=== PATIENT | female | born 1965 | race Caucasian/White ===

== ENCOUNTER 2021-09-11 18:06 | Emergency (ER) | payer OTHER ==
[~2021-09-11] VITALS: Ht 172.7 cm; Wt 111.1 kg
[2021-09-11 18:13] VITALS: BP 135/80
--- NOTE | 2021-09-11 18:39 | NUR ---
XRAY AT BEDSIDE
--- NOTE | 2021-09-11 18:48 | NUR ---
56YR OLD FEMALE BIB FAMILY C/O LEFT ANKLE INJURY/PAIN. FALL IN BATHROOM TODAY AROUND 1400. L ANKLE SWOLLEN PAIN LEVEL 10/01. GOOD CAP REFILL AND ROM. PT IN BED WITH SIDE RAILS UP X2 PERSIAN SPEAKING ONLY. UNKNOWN DM
[2021-09-11] MEDS ORDERED: HYDROcodone/APAP 5/325 MG 1 TAB TAB PO ONE (18:55)
--- NOTE | 2021-09-11 19:45 | NUR ---
PATIENT SITTING IN BED. STATED SHE IS NOT IN ANY PAIN OR DISCOMFORT AT THIS TIME.
[2021-09-11 19:50] VITALS: BP 128/78
--- NOTE | 2021-09-11 19:50 | NUR ---
Patient discharged with v/s stable. Written and verbal after care instructions given and explained. Patient verbalized understanding. Wheel Chair Assisted with steady gait. All questions addressed prior to discharge. Advised to follow up with PMD.
== END 2021-09-11 19:50 | disposition home or self-care (01) ==
LOC: MED 18:06
DX: S93.402A Sprain of unspecified ligament of left ankle, initial encounter (principal); E07.9 Disorder of thyroid, unspecified; W19.XXXA Unspecified fall, initial encounter; Y93.89 Activity, other specified; Y92.89 Other specified places as the place of occurrence of the external cause; Y99.8 Other external cause status
CPT/HCPCS: 73610; 73630; 99284

== ENCOUNTER 2021-11-06 17:43 | Emergency (ER) | payer OTHER ==
[~2021-11-06] VITALS: Ht 172.7 cm; Wt 114.0 kg
[2021-11-06 17:46] VITALS: BP 141/68
--- NOTE | 2021-11-06 17:54 | NUR ---
BIB SELF C/O RIGHT KNEE PAIN S/P FALL X 6 DAYS. PMH: DM
--- NOTE | 2021-11-06 18:00 | NUR ---
Patient being evaluated by MELLISSA WYMAN at bedside.
[2021-11-06] MEDS ORDERED: NAPR-54 PO (18:39)
--- NOTE | 2021-11-06 18:49 | NUR ---
SHILO WRAP X 1 TO R KNEE + CMS
[2021-11-06 19:02] VITALS: BP 141/68
== END 2021-11-06 19:01 | disposition home or self-care (01) ==
LOC: MED 17:43
DX: S80.01XA Contusion of right knee, initial encounter (principal); E11.9 Type 2 diabetes mellitus without complications; Z79.899 Other long term (current) drug therapy; Z79.4 Long term (current) use of insulin; W18.30XA Fall on same level, unspecified, initial encounter; Y93.89 Activity, other specified; Y92.89 Other specified places as the place of occurrence of the external cause; Y99.8 Other external cause status
CPT/HCPCS: 73562; 99283

== ENCOUNTER 2021-11-11 08:30 | Emergency (ER) | payer OTHER ==
[~2021-11-11] VITALS: Ht 177.8 cm; Wt 113.9 kg
[~2021-11-11 08:30] MED LIST: NAPR-54 PO
--- NOTE | 2021-11-11 12:22 | NUR ---
PT AMB TO ER BED 3
[2021-11-11] MEDS: NACL 0.9% 1,000 ML IV SCH (12:45)
[2021-11-11] MEDS: KETOROLAC 15 MG/ML VIAL IVP ONE (12:48)
[2021-11-11] MEDS: DIPHENOXYLATE /ATROPINE 2.5 MG TAB PO ONE (12:49)
[2021-11-11 13:15] LABS: BASOPHILS % (AUTO) 0.5 % (0.0-2.0); EOSINOPHILS # (AUTO) 0.2 K/uL (0-0.4); EOSINOPHILS % (AUTO) 2.2 % (0.0-4.0); HEMATOCRIT 43.5 % (36-48); HEMOGLOBIN 14.4 g/dL (12.0-16.0); LYMPHOCYTES # (AUTO) 2.3 K/uL (2.5-16.5); MEAN CORPUSCULAR HEMOGLOBIN 30 pg (27-31); MEAN CORPUSCULAR HGB CONC 33 g/dL (33-37); MEAN CORPUSCULAR VOLUME 89.2 fL (80-94); MONOCYTES # (AUTO) 0.5 K/uL (0.8-1.0); NEUTROPHILS # (AUTO) 4.8 K/uL (1.8-7.7); NEUTROPHILS % (AUTO) 61.3 % (42.2-75.2); PLATELET COUNT (AUTO) 165 K/uL (140-450); RED BLOOD CELL COUNT(AUTO) 4.87 MIL/uL (4.20-5.40); RED CELL DISTRIBUTION WIDTH 14.2 % (11.6-13.7); WHITE BLOOD COUNT (AUTO) 7.8 K/uL (4.8-10.8)
[2021-11-11 13:20] LABS: ALBUMIN 3.5 g/dL (3.4-5.0); ANION GAP 13.1 (8-16); CARBON DIOXIDE 28.7 mmol/L (21-32); CREATININE 0.7 mg/dL (0.6-1.3); POTASSIUM 3.8 mmol/L (3.5-5.1); TOTAL BILIRUBIN 0.4 mg/dL (0.0-1.0)
[2021-11-11] MEDS ORDERED: SULF-58 PO (13:56)
[2021-11-11] MEDS ORDERED: ATRO1TAB PO (13:56)
[2021-11-11 14:09] LABS: APPEARANCE,URINE SL CLOUDY (CLEAR); BILIRUBIN,URINE NEGATIVE (NEGATIVE); BLOOD, URINE TRACE-L (NEGATIVE); COLOR,URINE YELLOW (YELLOW); LEUKOCYTE ESTERASE ,URINE NEGATIVE (NEGATIVE); NITRITE, URINE POSITIVE (NEGATIVE); PH,URINE 5.5 (5.0-9.0); UGLUCOSE NEGATIVE (NEGATIVE)
[2021-11-11 14:14] VITALS: BP 146/82
== END 2021-11-11 14:08 | disposition home or self-care (01) ==
LOC: MED 09:30
DX: N39.0 Urinary tract infection, site not specified (principal); R19.7 Diarrhea, unspecified; M54.50 Low back pain, unspecified; E11.9 Type 2 diabetes mellitus without complications; F17.210 Nicotine dependence, cigarettes, uncomplicated; Z90.49 Acquired absence of other specified parts of digestive tract; Z79.899 Other long term (current) drug therapy
CPT/HCPCS: 36415; 80053; 81003; 81025; 83690; 85025; 96361; 96374; 99283; J1885; J7030

== ENCOUNTER 2021-12-15 14:06 | Emergency (ER) | payer OTHER ==
[~2021-12-15] VITALS: Ht 172.7 cm; Wt 111.6 kg
[~2021-12-15 14:06] MED LIST changes: +ATRO1TAB PO; +SULF-58 PO
[2021-12-15 14:42] VITALS: BP 155/82
[2021-12-15] MEDS ORDERED: NACL 0.9% 1,000 ML IV SCH (14:55)
[2021-12-15 15:15] LABS: BASOPHILS # (AUTO) 0.1 K/uL (0.00-0.22); BASOPHILS % (AUTO) 0.9 % (0.0-2.0); EOSINOPHILS # (AUTO) 0.1 K/uL (0-0.4); EOSINOPHILS % (AUTO) 2.1 % (0.0-4.0); HEMATOCRIT 40.4 % (36-48); HEMOGLOBIN 13.9 g/dL (12.0-16.0); LYMPHOCYTES # (AUTO) 2.7 K/uL (2.5-16.5); LYMPHOCYTES % (AUTO) 38.4 % (20.5-51.1); MEAN CORPUSCULAR HEMOGLOBIN 30 pg (27-31); MEAN CORPUSCULAR HGB CONC 34 g/dL (33-37); MEAN CORPUSCULAR VOLUME 87.5 fL (80-94); MONOCYTES # (AUTO) 0.4 K/uL (0.8-1.0); MONOCYTES % (AUTO) 5.8 % (1.7-9.3); NEUTROPHILS # (AUTO) 3.7 K/uL (1.8-7.7); NEUTROPHILS % (AUTO) 52.8 % (42.2-75.2); PLATELET COUNT (AUTO) 151 K/uL (140-450); RED BLOOD CELL COUNT(AUTO) 4.62 MIL/uL (4.20-5.40); RED CELL DISTRIBUTION WIDTH 13.8 % (11.6-13.7)
[2021-12-15] MEDS ORDERED: MORPHINE SULFATE 4 MG/ML SYR IVP ONE (15:20)
[2021-12-15] MEDS ORDERED: ONDANSETRON 4 MG/2 ML VIAL IVP ONE (15:20)
[2021-12-15] MEDS ORDERED: KETOROLAC 15 MG/ML VIAL IVP ONE (15:20)
--- NOTE | 2021-12-15 15:30 | NUR ---
RECEIVED PATIENT FROM TRIAGE, PATIENT ALERT ADN ORIENTED X 4, NO S/S OF ACUTE DISTRESS. HX OF DM AND HTN. PATIENT REPORTS NAUSEA AND DIARRHEA, WITH 2 EPISODES OF DIARRHEA TODAY. PATIENT'S LUNG SOUNDS CLEAR BILATERALLY. ABLE TO AMBULATE WITH NO ASSISTANCE. WILL CONTINUE TO MONITOR
[2021-12-15 15:36] LABS: ALBUMIN 3.2 g/dL (3.4-5.0); CARBON DIOXIDE 26.9 mmol/L (21-32); CREATININE 0.9 mg/dL (0.6-1.3); POTASSIUM 3.9 mmol/L (3.5-5.1); TOTAL BILIRUBIN 0.3 mg/dL (0.0-1.0)
[2021-12-15 16:06] LABS: BILIRUBIN,URINE NEGATIVE (NEGATIVE); BLOOD, URINE 3+ (NEGATIVE); LEUKOCYTE ESTERASE ,URINE NEGATIVE (NEGATIVE); NITRITE, URINE NEGATIVE (NEGATIVE); PH,URINE 5.5 (5.0-9.0); UGLUCOSE NEGATIVE (NEGATIVE)
[2021-12-15 16:15] LABS: APPEARANCE,URINE CLEAR (CLEAR); COLOR,URINE STRAW (YELLOW)
[2021-12-15] MEDS ORDERED: ONDANSETRON 4 MG/2 ML VIAL ONE (16:24)
[2021-12-15] MEDS ORDERED: KETOROLAC 15 MG/ML VIAL ONE (16:25)
[2021-12-15] MEDS ORDERED: MORPHINE SULFATE 4 MG/ML SYR ONE (16:25)
[2021-12-15 16:29] LABS: RBC,URINE 20-50 /HPF (0-5); WBC,URINE 0-5 /HPF (0-5)
[2021-12-15 18:00] VITALS: BP 115/82
[2021-12-15] MEDS ORDERED: CEPH-588 PO (18:25)
[2021-12-15] MEDS ORDERED: ONDA-188 SL (18:25)
[2021-12-15] MEDS ORDERED: ACETAMINOPHEN 325 MG TAB PO ONE (19:15)
--- NOTE | 2021-12-15 19:20 | NUR ---
FIRST CONTACT WITH PT FOR DC ONLY. PT A&OX4, RR EVEN AND UNLABORED. NO S/S OF DISTRESS NOTED.
--- NOTE | 2021-12-15 19:20 | NUR ---
Patient discharged with v/s stable. Written and verbal after care instructions given and explained. Patient alert, oriented and verbalized understanding of instructions. Ambulatory with steady gait. All questions addressed prior to discharge. ID band removed. Patient advised to follow up with PMD. Rx of KEFLEX, ZOFRAN given. Patient educated on indication of medication including possible reaction and side effects. Opportunity to ask questions provided and answered.
--- NOTE | 2021-12-15 19:21 | NUR ---
REPORT GIVEN TO TAHIR DUTTON FOR CONTINUITY OF CARE
== END 2021-12-15 19:20 | disposition home or self-care (01) ==
LOC: MED 14:06
DX: N30.00 Acute cystitis without hematuria (principal); R19.7 Diarrhea, unspecified; E11.9 Type 2 diabetes mellitus without complications; Z79.899 Other long term (current) drug therapy; Z90.49 Acquired absence of other specified parts of digestive tract
CPT/HCPCS: 36415; 74177; 76830; 80053; 81001; 81025; 83690; 85025; 87086; 93005; 96361; 96374; 96375; 99285; J1885; J2270; J2405; Q0092; Q9967; J7030

== ENCOUNTER 2022-01-13 09:25 | Emergency (ER) | payer OTHER ==
[~2022-01-13] VITALS: Ht 172.7 cm; Wt 113.2 kg
[~2022-01-13 09:25] MED LIST changes: +CEPH-588 PO; +ONDA-188 SL
[2022-01-13 09:51] VITALS: BP 131/96
[2022-01-13] MEDS ORDERED: ONDANSETRON 4 MG ODT PO ONE (10:20)
[2022-01-13] MEDS ORDERED: KETOROLAC 30 MG/ML VIAL IM ONE (10:20)
[2022-01-13 10:35] LABS: APPEARANCE,URINE CLEAR (CLEAR); BILIRUBIN,URINE NEGATIVE (NEGATIVE); BLOOD, URINE TRACE-I (NEGATIVE); COLOR,URINE YELLOW (YELLOW); LEUKOCYTE ESTERASE ,URINE NEGATIVE (NEGATIVE); NITRITE, URINE POSITIVE (NEGATIVE); PH,URINE 5.5 (5.0-9.0); UGLUCOSE NEGATIVE (NEGATIVE)
--- NOTE | 2022-01-13 10:39 | NUR ---
PT TAKEN TO RAD VIA WHEELCHAIR
[2022-01-13 10:54] LABS: RBC,URINE 0-5 /HPF (0-5); WBC,URINE 0-5 /HPF (0-5)
[2022-01-13 11:02] LABS: BASOPHILS # (AUTO) 0.1 K/uL (0.00-0.22); EOSINOPHILS # (AUTO) 0.2 K/uL (0-0.4); EOSINOPHILS % (AUTO) 2.1 % (0.0-4.0); HEMOGLOBIN 14.4 g/dL (12.0-16.0); LYMPHOCYTES # (AUTO) 2.8 K/uL (2.5-16.5); LYMPHOCYTES % (AUTO) 32.2 % (20.5-51.1); MEAN CORPUSCULAR HEMOGLOBIN 30 pg (27-31); MEAN CORPUSCULAR HGB CONC 34 g/dL (33-37); MEAN CORPUSCULAR VOLUME 89.1 fL (80-94); MONOCYTES # (AUTO) 0.6 K/uL (0.8-1.0); MONOCYTES % (AUTO) 6.5 % (1.7-9.3); NEUTROPHILS # (AUTO) 5.2 K/uL (1.8-7.7); NEUTROPHILS % (AUTO) 58.2 % (42.2-75.2); PLATELET COUNT (AUTO) 156 K/uL (140-450); RED BLOOD CELL COUNT(AUTO) 4.83 MIL/uL (4.20-5.40); WHITE BLOOD COUNT (AUTO) 8.8 K/uL (4.8-10.8)
[2022-01-13] MEDS ORDERED: HYDROcodone/APAP 5/325 MG 1 TAB TAB PO ONE (11:40)
[2022-01-13 11:43] LABS: ALBUMIN 3.2 g/dL (3.4-5.0); ANION GAP 11.4 (8-16); CARBON DIOXIDE 29.6 mmol/L (21-32); CREATININE 0.7 mg/dL (0.6-1.3); TOTAL BILIRUBIN 0.3 mg/dL (0.0-1.0)
[2022-01-13] MEDS ORDERED: cefTRIAXone 1,000 MG in LIDOCAINE MPF 1% 2.1 ML IM ONE (11:55)
[2022-01-13] MEDS ORDERED: CEPH-588 PO (11:57)
[2022-01-13] MEDS ORDERED: TRAM-748 PO (11:57)
[2022-01-13] MEDS ORDERED: LIDOCAINE MPF 1% 5 ML ONE (12:43)
[2022-01-13] MEDS ORDERED: cefTRIAXone 1,000 MG VIAL ONE (12:43)
[2022-01-13] MEDS ORDERED: HYDROcodone/APAP 5/325 MG 1 TAB TAB ONE (12:50)
--- NOTE | 2022-01-13 13:26 | NUR ---
Patient discharged with v/s stable. Written and verbal after care instructions given and explained. Patient alert, oriented and verbalized understanding of instructions. Ambulatory with steady gait. All questions addressed prior to discharge. ID band removed. Patient advised to follow up with PMD. Rx of CEPHALEXIN, TRAMADOL HCI given. Opportunity to ask questions provided and answered.
== END 2022-01-13 13:25 | disposition home or self-care (01) ==
LOC: MED 09:25
DX: N10 Acute pyelonephritis (principal); E11.9 Type 2 diabetes mellitus without complications; I10 Essential (primary) hypertension; Z79.899 Other long term (current) drug therapy
CPT/HCPCS: 36415; 71045; 74176; 80053; 81001; 81025; 85025; 96372; 99285; J0696; J1885; J2001; Q0162

== ENCOUNTER 2022-05-25 16:45 | Emergency (ER) | payer OTHER ==
[~2022-05-25] VITALS: Ht 172.7 cm; Wt 115.7 kg
[~2022-05-25 16:45] MED LIST changes: +TRAM-748 PO
[2022-05-25 17:18] VITALS: BP 137/87
[2022-05-25] MEDS ORDERED: ALUMINUM HYD/MAG/SIMETHICONE 30 ML UDC PO ONE (19:20)
[2022-05-25] MEDS ORDERED: ONDANSETRON 4 MG ODT PO ONE ×2 (19:20→22:50)
[2022-05-25 20:00] LABS: BASOPHILS % (AUTO) 0.4 % (0.0-2.0); EOSINOPHILS # (AUTO) 0.2 K/uL (0-0.4); EOSINOPHILS % (AUTO) 1.6 % (0.0-4.0); HEMATOCRIT 44.1 % (36-48); HEMOGLOBIN 15.1 g/dL (12.0-16.0); LYMPHOCYTES # (AUTO) 1.4 K/uL (2.5-16.5); LYMPHOCYTES % (AUTO) 12.5 % (20.5-51.1); MEAN CORPUSCULAR HEMOGLOBIN 30 pg (27-31); MEAN CORPUSCULAR HGB CONC 34 g/dL (33-37); MEAN CORPUSCULAR VOLUME 88.6 fL (80-94); MONOCYTES # (AUTO) 0.4 K/uL (0.8-1.0); MONOCYTES % (AUTO) 3.7 % (1.7-9.3); NEUTROPHILS % (AUTO) 81.8 % (42.2-75.2); PLATELET COUNT (AUTO) 154 K/uL (140-450); RED BLOOD CELL COUNT(AUTO) 4.98 MIL/uL (4.20-5.40); RED CELL DISTRIBUTION WIDTH 13.1 % (11.6-13.7)
[2022-05-25 20:27] LABS: ALBUMIN 3.6 g/dL (3.4-5.0); ANION GAP 13.5 (8-16); CARBON DIOXIDE 25.4 mmol/L (21-32); CREATININE 0.8 mg/dL (0.6-1.3); POTASSIUM 3.9 mmol/L (3.5-5.1); TOTAL BILIRUBIN 0.5 mg/dL (0.0-1.0)
[2022-05-25 20:32] LABS: LIPASE 117 U/L (73-393)
[2022-05-25 21:33] LABS: APPEARANCE,URINE CLEAR (CLEAR); BILIRUBIN,URINE NEGATIVE (NEGATIVE); BLOOD, URINE 1+ (NEGATIVE); COLOR,URINE YELLOW (YELLOW); LEUKOCYTE ESTERASE ,URINE NEGATIVE (NEGATIVE); NITRITE, URINE NEGATIVE (NEGATIVE); PH,URINE 5.5 (5.0-9.0); UGLUCOSE NEGATIVE (NEGATIVE)
[2022-05-25 22:18] LABS: WBC,URINE 0-5 /HPF (0-5)
[2022-05-25] MEDS ORDERED: OMEP40EC23 PO (22:25)
[2022-05-25] MEDS ORDERED: CEPH-588 PO (22:25)
[2022-05-25] MEDS ORDERED: ONDANSETRON 4 MG TAB ONE (22:43)
[2022-05-25] MEDS ORDERED: ONDA-188 PO (22:49)
[2022-05-25 22:58] VITALS: BP 137/87
--- NOTE | 2022-05-25 22:59 | NUR ---
Patient discharged with v/s stable. Written and verbal after care instructions given and explained. Patient alert, oriented and verbalized understanding of instructions. Ambulatory with steady gait. All questions addressed prior to discharge. ID band removed. Patient advised to follow up with PMD. Rx of KEFLEX, PRILOSEC, ZOFRAN given. Patient educated on indication of medication including possible reaction and side effects. Opportunity to ask questions provided and answered.
== END 2022-05-25 22:58 | disposition home or self-care (01) ==
LOC: MED 16:45
DX: N30.01 Acute cystitis with hematuria (principal); E11.9 Type 2 diabetes mellitus without complications; I10 Essential (primary) hypertension; F17.210 Nicotine dependence, cigarettes, uncomplicated; Z90.49 Acquired absence of other specified parts of digestive tract; Z79.899 Other long term (current) drug therapy; Z79.1 Long term (current) use of non-steroidal anti-inflammatories (NSAID); Z79.2 Long term (current) use of antibiotics; Z79.891 Long term (current) use of opiate analgesic
CPT/HCPCS: 36415; 71045; 74176; 80053; 81001; 82948; 83690; 83880; 84484; 85025; 87086; 93005; 99285; Q0162

== ENCOUNTER 2023-02-24 15:41 | Emergency (ER) | payer OTHER ==
[~2023-02-24] VITALS: Ht 167.6 cm; Wt 90.7 kg
[~2023-02-24 15:41] MED LIST changes: +OMEP40EC23 PO; +ONDA-188 PO
[2023-02-24 16:03] VITALS: BP 137/73; PULSE 106; RESP 20; TEMP 100.4; O2SAT 97
[2023-02-24] MEDS ORDERED: IBUPROFEN 800 MG TAB PO ONE (16:45)
[2023-02-24] MEDS ORDERED: ALBU0.0912 IH (19:36)
[2023-02-24] MEDS ORDERED: PRED20TA5 PO (19:36)
[2023-02-24] MEDS ORDERED: DOXY-690 PO (19:36)
[2023-02-24 19:58] VITALS: BP 113/75; PULSE 94; RESP 20; TEMP 98.5; O2SAT 96
[2023-02-24 20:01] LABS: FLU A ANTIGEN negative (NEGATIVE); FLU B ANTIGEN NEGATIVE (NEGATIVE)
== END 2023-02-24 19:58 | disposition home or self-care (01) ==
LOC: MED 15:41
DX: J18.9 Pneumonia, unspecified organism (principal); Z20.822 Contact with and (suspected) exposure to COVID-19; E11.9 Type 2 diabetes mellitus without complications; I10 Essential (primary) hypertension; Z79.899 Other long term (current) drug therapy; Z79.1 Long term (current) use of non-steroidal anti-inflammatories (NSAID); Z79.2 Long term (current) use of antibiotics
CPT/HCPCS: 71046; 99284

== ENCOUNTER 2023-12-17 11:11 | Emergency (ER) | payer OTHER ==
[~2023-12-17] VITALS: Ht 170.2 cm; Wt 104.8 kg
[~2023-12-17 11:11] MED LIST changes: +ALBU0.0912 IH; +DOXY-690 PO; +NAPR-337 PO; -NAPR-54 PO; +PRED20TA5 PO
[2023-12-17 11:15] VITALS: BP 136/88; PULSE 65; RESP 15; TEMP 98.3; O2SAT 94
[2023-12-17 12:13] LABS: BASOPHILS % (AUTO) 0.6 % (0.0-2.0); EOSINOPHILS # (AUTO) 0.2 K/uL (0-0.4); EOSINOPHILS % (AUTO) 2.3 % (0.0-4.0); HEMATOCRIT 41.7 % (36-48); HEMOGLOBIN 13.9 g/dL (12.0-16.0); LYMPHOCYTES # (AUTO) 2.8 K/uL (2.5-16.5); LYMPHOCYTES % (AUTO) 37.6 % (20.5-51.1); MEAN CORPUSCULAR HEMOGLOBIN 30 pg (27-31); MEAN CORPUSCULAR HGB CONC 33 g/dL (33-37); MEAN CORPUSCULAR VOLUME 89.2 fL (80-94); MONOCYTES # (AUTO) 0.5 K/uL (0.8-1.0); MONOCYTES % (AUTO) 6.2 % (1.7-9.3); NEUTROPHILS # (AUTO) 3.9 K/uL (1.8-7.7); NEUTROPHILS % (AUTO) 53.3 % (42.2-75.2); PLATELET COUNT (AUTO) 154 K/uL (140-450); RED BLOOD CELL COUNT(AUTO) 4.68 MIL/uL (4.20-5.40); RED CELL DISTRIBUTION WIDTH 13.5 % (11.6-13.7); WHITE BLOOD COUNT (AUTO) 7.4 K/uL (4.8-10.8)
[2023-12-17 12:14] LABS: APPEARANCE,URINE SLIGHTLY CLOUDY (CLEAR); BILIRUBIN,URINE NEGATIVE (NEGATIVE); BLOOD, URINE NEGATIVE (NEGATIVE); COLOR,URINE YELLOW (YELLOW); LEUKOCYTE ESTERASE ,URINE 1+ (NEGATIVE); NITRITE, URINE POSITIVE (NEGATIVE); PH,URINE 5.5 (5.0-9.0); PROTEIN,URINE NEGATIVE (NEGATIVE); UGLUCOSE NEGATIVE (NEGATIVE); UROBILINOGEN,URINE 0.2 EU/dL (0.2 - 1)
[2023-12-17 12:23] LABS: BACTERIA,URINE 10-30 (MOD) /HPF (None Seen); MUCUS,URINE 1+ /LPF (None Seen); SQUAMOUS EPITHELIAL CELL,UR 4-10 (MOD) /LPF (0-3 (FEW))
[2023-12-17 12:27] LABS: ANION GAP 11.8 (8-16); CALCIUM 8.7 mg/dL (8.5-10.1); CARBON DIOXIDE 28.6 mmol/L (21-32); CREATININE 0.7 mg/dL (0.6-1.3); POTASSIUM 3.4 mmol/L (3.5-5.1)
[2023-12-17] MEDS: PROCHLORPERAZINE 10 MG/2 ML VIAL IM ONE (12:29)
[2023-12-17] MEDS: ACETAMINOPHEN EXTRA STRENGTH 500 MG TAB PO ONE (12:33)
[2023-12-17] MEDS ORDERED: IBUP-2213 PO (14:17)
[2023-12-17] MEDS ORDERED: CEPH-588 PO (14:17)
[2023-12-17 14:37] VITALS: BP 124/85; PULSE 56; RESP 20; TEMP 97.6; O2SAT 97
== END 2023-12-17 14:37 | disposition home or self-care (01) ==
LOC: MED 11:11
DX: R51.9 Headache, unspecified (principal); N39.0 Urinary tract infection, site not specified; R11.2 Nausea with vomiting, unspecified; E11.9 Type 2 diabetes mellitus without complications; I10 Essential (primary) hypertension; Z79.899 Other long term (current) drug therapy
CPT/HCPCS: 36415; 70450; 80048; 81001; 85025; 87086; 87186; 96372; 99285; J0780; Q0163